=== PATIENT | female | born 1970 | race African-American/Black ===

== ENCOUNTER 2024-03-20 12:46 | Inpatient (IN) | payer BC ==
[2024-03-20 13:27] VITALS: BMI 32.5
[2024-03-20] MEDS ORDERED: DICYCLOMINE HCL 10 MG CAPSULE PO PRN (13:45)
[2024-03-20] MEDS ORDERED: BENZOCAINE/MENTHOL (CHLORASEPTIC ) LOZENGE MM PRN (13:45)
[2024-03-20] MEDS ORDERED: BISMUTH SUBSALICYLATE 524 MG/30 ML PO PRN (13:45)
[2024-03-20] MEDS ORDERED: MAG HYDROX/AL HYDROX/SIMETH 30 ML UNIT-DOSE CUP PO PRN (13:45)
[2024-03-20] MEDS ORDERED: POLYETHYLENE GLYCOL (HEALTHYLAX) 3350 17 GM PACKET PO PRN (13:45)
[2024-03-20] MEDS ORDERED: guaiFENesin 600 MG TABLET.ER (FP) PO PRN (13:45)
[2024-03-20] MEDS ORDERED: BENZONATATE 200 MG CAPSULE PO PRN (13:45)
[2024-03-20] MEDS ORDERED: IBUPROFEN 400 MG TABLET (FP) PO PRN (13:45)
[2024-03-20] MEDS ORDERED: LORazepam 1 MG TABLET PO PRN (13:45)
[2024-03-20] MEDS ORDERED: NALOXONE (NARCAN) HCL 4 MG/0.1 ML SPRAY NS PRN (13:45)
[2024-03-20] MEDS ORDERED: MAGNESIUM HYDROX 2400MG/30ML ORAL SUSPENSION 30 ML CUP PO PRN (13:45)
[2024-03-20] MEDS ORDERED: NALOXONE HCL 0.4 MG/ML VIAL IM PRN (13:45)
[2024-03-20] MEDS ORDERED: PRENATAL VITAMINS W/ FOLIC ACID TABLET (FP) PO ONE (14:21)
[2024-03-20] MEDS: DIVALPROEX SODIUM 500 MG TABLET E.C. PO SCH (14:22)
[2024-03-20] MEDS: PRENATAL VITAMINS W/ FOLIC ACID TABLET (FP) PO SCH (14:22)
[2024-03-20] MEDS: LORazepam 1 MG TABLET PO SCH (17:34)
[2024-03-20] MEDS: IBUPROFEN 600 MG TABLET (FP) PO PRN (17:35)
[2024-03-20] MEDS: THIAMINE 100 MG TABLET PO SCH (22:51)
[2024-03-20] MEDS: ACAMPROSATE CALCIUM 333 MG TABLET.DR PO SCH (22:51)
[2024-03-20] MEDS: MELATONIN 5 MG TABLETS PO SCH (22:51)
[2024-03-21 11:39] LABS: HEMATOCRIT 37.9 % (32.4-45.2); HEMOGLOBIN 12.3 GM/dL (10.7-15.3); MCH 28.1 pg (25.7-33.7); MCHC 32.5 g/dl (32.0-36.0); MEAN CELL VOLUME 86.5 fl (80-96); MEAN PLT VOLUME 11.2 fl (7.5-11.1); PLATELET COUNT 239 10^3/uL (134-434); RBC 4.39 M/mm3 (3.60-5.2); RDW 15.3 % (11.6-15.6); WHITE BLOOD COUNT 6.9 K/mm3 (4.0-10.0)
[2024-03-21 11:59] LABS: CHLORIDE 113 mmol/L (98-107); POTASSIUM 4.4 mmol/L (3.5-5.1); SODIUM 142 mmol/L (136-145)
[2024-03-21 12:15] LABS: ALBUMIN 2.8 g/dl (3.4-5.0); ANION GAP 6 mmol/L (4-13); CALCIUM 8.1 mg/dL (8.5-10.1); CO2 24 mmol/L (21-32); GLUCOSE,RANDOM 111 mg/dL (74-106)
[2024-03-21 12:20] LABS: SGPT/ALT 14 U/L (13-61)
[2024-03-21 12:21] LABS: ALK PHOS 78 U/L (45-117); BILIRUBIN,TOTAL < 0.1 mg/dL (0.2-1); CREATININE 0.9 mg/dL (0.55-1.3); SGOT/AST 16 U/L (15-37); TOT PROT 6.2 g/dl (6.4-8.2)
[2024-03-21 12:28] LABS: BLOOD UREA NITROGEN 21.4 mg/dL (7-18)
[2024-03-21] MEDS: HALOPERIDOL 5 MG TABLET PO SCH (12:55)
[2024-03-21] MEDS: BENZTROPINE MESYLATE 1 MG TABLET PO SCH (12:55)
[2024-03-21] MEDS: amLODIPine BESYLATE 5 MG TABLET (FP) PO SCH (17:20)
[2024-03-22] MEDS: LORazepam 1 MG TABLET PO SCH (05:59)
[2024-03-23] MEDS ORDERED: LORazepam 0.5 MG TABLET PO PRN
[2024-03-23] MEDS: LORazepam 0.5 MG TABLET PO SCH (06:06)
[2024-03-23] MEDS: MELATONIN 5 MG TABLETS PO ONE (23:34)
[2024-03-24] MEDS: LORazepam 0.5 MG TABLET PO ONE (05:55)
[2024-03-24] MEDS: LOPERAMIDE HCL 2 MG CAPSULE PO PRN (09:41)
[2024-03-24] MEDS: ONDANSETRON *ODT* 4 MG TABLET SL PRN (12:10)
[2024-03-24] MEDS: QUEtiapine FUMARATE 50 MG TABLET PO SCH (22:50)
[2024-03-25] MEDS: hydrOXYzine PAMOATE 25 MG CAPSULE (FP) PO PRN (19:57)
[2024-03-25] MEDS: METHOCARBAMOL 500 MG TABLET PO PRN (19:57)
[2024-03-26] MEDS: ACETAMINOPHEN 325 MG TABLET (FP) PO PRN (18:26)
[2024-03-27 09:35] VITALS: BP 115/66; PULSE 79; RESP 18; TEMP 97.8
== END 2024-03-27 12:40 | disposition other institution (70) | DRG 774 ==
LOC: YASAS 12:46 → Y6N 14:06
PROVIDERS: ADMIT Allergy & Immunology; ATTEND Surgery
PROC: HZ2ZZZZ Detoxification Services for Substance Abuse Treatment (ICD-10-PCS; principal; 2024-03-20)
DX: F10.230 Alcohol dependence with withdrawal, uncomplicated (principal); F14.20 Cocaine dependence, uncomplicated; F12.10 Cannabis abuse, uncomplicated; F17.213 Nicotine dependence, cigarettes, with withdrawal; F25.0 Schizoaffective disorder, bipolar type; F31.9 Bipolar disorder, unspecified; I10 Essential (primary) hypertension; Z86.19 Personal history of other infectious and parasitic diseases; Z88.7 Allergy status to serum and vaccine
CPT/HCPCS: 36415; 71046-TC-FY; 80053; 80164; 80305; 80307; 81025; 84520; 85027; 86593; 86780; 86803; 87811; 93005; 93010; Q0162

== ENCOUNTER 2024-03-27 12:29 | Inpatient (IN) | payer BC ==
[~2024-03-27 12:29] MED LIST: ACETAMINOPHEN 325 MG TABLET (FP) PO PRN; BENZOCAINE/MENTHOL (CHLORASEPTIC ) LOZENGE MM PRN; BENZONATATE 200 MG CAPSULE PO PRN; IBUPROFEN 400 MG TABLET (FP) PO PRN; IBUPROFEN 600 MG TABLET (FP) PO PRN; LOPERAMIDE HCL 2 MG CAPSULE PO PRN; MAG HYDROX/AL HYDROX/SIMETH 30 ML UNIT-DOSE CUP PO PRN; MAGNESIUM HYDROX 2400MG/30ML ORAL SUSPENSION 30 ML CUP PO PRN; NICOTINE 7 MG/24 HOURS TOPICAL PATCH TD PRN; NICOTINE POLACRILEX 2 MG GUM BUC PRN; NICOTINE POLACRILEX 2 MG LOZENGE BC PRN; POLYETHYLENE GLYCOL (HEALTHYLAX) 3350 17 GM PACKET PO PRN; amLODIPine BESYLATE 5 MG TABLET (FP) PO SCH; guaiFENesin 600 MG TABLET.ER (FP) PO PRN; hydrOXYzine PAMOATE 25 MG CAPSULE (FP) PO PRN
[2024-03-27] MEDS: hydrOXYzine PAMOATE 25 MG CAPSULE (FP) PO PRN (16:41)
[2024-03-27] MEDS: IBUPROFEN 600 MG TABLET (FP) PO PRN (16:42)
[2024-03-27] MEDS: THIAMINE 100 MG TABLET PO SCH ×2 (16:52→21:23)
[2024-03-27] MEDS: DIVALPROEX SODIUM 500 MG TABLET E.C. PO SCH ×2 (16:52→21:24)
[2024-03-27] MEDS: BENZTROPINE MESYLATE 1 MG TABLET PO SCH ×2 (16:52→21:24)
[2024-03-27] MEDS: QUEtiapine FUMARATE 100 MG TABLET (FP) PO SCH ×2 (16:52→21:23)
[2024-03-27] MEDS: MELATONIN 5 MG TABLETS PO SCH ×2 (16:52→21:23)
[2024-03-27] MEDS: HALOPERIDOL 5 MG TABLET PO SCH ×2 (16:52→21:24)
[2024-03-27] MEDS: PRENATAL VITAMINS W/ FOLIC ACID TABLET (FP) PO SCH (16:53)
[2024-03-27] MEDS: ACETAMINOPHEN 325 MG TABLET (FP) PO PRN (21:23)
[2024-03-28] MEDS: PRENATAL VITAMINS W/ FOLIC ACID TABLET (FP) PO SCH (05:44)
[2024-03-28] MEDS: amLODIPine BESYLATE 5 MG TABLET (FP) PO SCH (05:44)
[2024-03-29] MEDS: QUEtiapine FUMARATE 50 MG TABLET PO SCH (21:17)
[2024-04-01] MEDS ORDERED: QUEtiapine FUMARATE 25 MG TABLET ONE (20:36)
[2024-04-02] MEDS: MAGNESIUM HYDROX 2400MG/30ML ORAL SUSPENSION 30 ML CUP PO PRN (23:37)
[2024-04-05] MEDS: MAG HYDROX/AL HYDROX/SIMETH 30 ML UNIT-DOSE CUP PO PRN (07:02)
[2024-04-06 06:48] VITALS: RESP 18
[2024-04-08] MEDS ORDERED: QUEtiapine FUMARATE 25 MG TABLET ONE (19:51)
[2024-04-10 06:59] VITALS: TEMP 96.9
[2024-04-10 09:20] VITALS: BP 146/78; PULSE 99
== END 2024-04-10 10:15 | disposition home or self-care (01) | DRG 772 ==
LOC: YASAS 12:29 → Y3NR 12:32 → Y5N 03-28 18:04
PROVIDERS: ADMIT Allergy & Immunology; ATTEND Psychiatry & Neurology Pain Medicine
PROC: HZ42ZZZ Group Counseling for Substance Abuse Treatment, Cognitive-Behavioral (ICD-10-PCS; principal; 2024-03-27)
DX: F11.20 Opioid dependence, uncomplicated (principal); F10.20 Alcohol dependence, uncomplicated; F14.20 Cocaine dependence, uncomplicated; F12.20 Cannabis dependence, uncomplicated; F17.210 Nicotine dependence, cigarettes, uncomplicated; F31.9 Bipolar disorder, unspecified; F20.0 Paranoid schizophrenia; F19.282 Other psychoactive substance dependence with psychoactive substance-induced sleep disorder; G40.909 Epilepsy, unspecified, not intractable, without status epilepticus; I10 Essential (primary) hypertension; Z88.7 Allergy status to serum and vaccine